=== PATIENT | female | born 1940 ===

== ENCOUNTER 2018-07-12 10:07 | Emergency (ER) | payer OTHER ==
[2018-07-12 10:08] VITALS: BMI 47.2
[2018-07-12 11:20] LABS: SQUAMOUS EPITHIAL 4 /hpf (0-5); URINE BACTERIA OCC (<OCC); URINE BILIRUBIN NEGATIVE (NEGATIVE); URINE BLOOD NEGATIVE (NEGATIVE); URINE CLARITY Hazy (Clear); URINE COLOR Yellow (YELLOW); URINE GLUCOSE (UA) NORMAL (Normal); URINE LEUKOCYTE ESTERASE TRACE Leu/uL (Negative); URINE PROTEIN NEGATIVE (NEGATIVE); URINE UROBILINOGEN NORMAL mg/dL (0.2-1.0)
[2018-07-12] MEDS ORDERED: Sodium Chloride 0.9% 1,000 ML IV ONE (11:54)
[2018-07-12] MEDS ORDERED: Sodium Chloride 0.9% 1,000 ML ONE (12:28)
[2018-07-12 13:14] LABS: BASO # 0.1 K/uL (0.0-0.2); BASO % 1.1 % (0.0-2.0); EOS # 0.1 K/uL (0.0-0.7); EOS % 1.3 % (0.0-4.0); HEMOGLOBIN 14.3 g/dL (11.0-16.0); LYMPH # 2.2 K/uL (1.0-4.3); LYMPH % 41.5 % (20.0-40.0); MEAN CORPUSCULAR HEMOGLOBIN 31.3 pg (27.0-31.0); MEAN CORPUSCULAR HGB CONC 34.4 g/dL (33.0-37.0); MEAN PLATELET VOLUME 12.1 fL (7.2-11.7); MONO # 0.4 K/uL (0.0-0.8); MONO % 8.1 % (0.0-10.0); NEUT # 2.5 K/uL (1.8-7.0); NRBC % 0.1 % (0.0-2.0); RBC 4.56 Mil/uL (3.80-5.20); RED CELL DISTRIBUTION WIDTH 13.9 % (11.5-14.5); WHITE BLOOD COUNT 5.3 K/uL (4.8-10.8)
[2018-07-12 13:22] LABS: INR 1.1; PARTIAL THROMBOPLASTIN TIME 30.8 SECONDS (21-34); PROTHROMBIN TIME 12.1 SECONDS (9.7-12.2)
[2018-07-12 13:25] LABS: BLOOD UREA NITROGEN 15 mg/dL (7-17); CALCIUM 9.8 mg/dl (8.6-10.4); GFR NON-AFRICAN AMERICAN > 60; LIPASE 116 U/L (23-300)
[2018-07-12 13:30] LABS: ALB/GLOB RATIO 1.2 (1.0-2.1); ALT/SGPT 14 U/L (9-52); AST/SGOT 44 U/L (14-36)
[2018-07-12] MEDS ORDERED: Iodixanol 320 MG/ML 100 ML BOTTLE IV ONE (13:37)
[2018-07-12 15:00] VITALS: RESP 20
--- NOTE | 2018-07-12 15:11 | C.PDOC ---
History Of Present Illness 77 y/o female,w/PMhx of HTN and arthritis, presents to the ER complaining of abdominal pain which has present over the past 1 month becoming gradually worse over the past 1 week. As per daughter, patient describes the pain as "pinching" sensation. Daughter states patient has associated nausea. She also notes that patient had her last bm today. Patient has a history of ventral hernia for one year. Denies having fever,chills,vomiting, diarrhea, dysuria, and hematuria. <Elizabeth Marlow - Last Filed: 07/13/18 08:42> History Per: Patient History/Exam Limitations: no limitations Onset/Duration Of Symptoms: Days Current Symptoms Are (Timing): Still Present Severity: Moderate <Elizabeth Marlow - Last Filed: 07/13/18 08:42> <Yandy Luna - Last Filed: 07/13/18 14:48> Chief Complaint (Nursing): Abdominal Pain Past Medical History Reviewed: Historical Data, Nursing Documentation, Vital Signs Vital Signs: Last Vital Signs Temp 97.8 F 07/12/18 14:59 Pulse 68 07/12/18 14:59 Resp 20 07/12/18 14:59 BP 114/65 07/12/18 14:59 Pulse Ox 95 07/12/18 14:59 Primary Care Provider: Johnathan Oquendo - Medical History PMH: Arthritis, HTN, Peripheral Edema Other Surgeries: Hx of surgeries Family History: States: No Known Family Hx - Social History Hx Alcohol Use: No Hx Substance Use: No - Immunization History Hx Influenza Vaccination: No Hx Pneumococcal Vaccination: No <Elizabeth Marlow - Last Filed: 07/13/18 08:42> Vital Signs: Last Vital Signs Temp 98.1 F 07/12/18 18:00 Pulse 72 07/12/18 18:00 Resp 20 07/12/18 18:00 BP 147/79 07/12/18 18:00 Pulse Ox 95 07/13/18 08:43 <Yandy Luna - Last Filed: 07/13/18 14:48> Review Of Systems Except As Marked, All Systems Reviewed And Found Negative. Constitutional: Negative for: Fever, Chills Gastrointestinal: Positive for: Nausea, Abdominal Pain. Negative for: Vomiting, Diarrhea Genitourinary: Negative for: Dysuria, Hematuria <Elizabeth Marlow - Last Filed: 07/13/18 08:42> Physical Exam - Physical Exam Appears: Non-toxic, No Acute Distress, Other (obese,awake,alert, orientedx3) Skin: Normal Color, Warm, Dry Head: Atraumatic, Normacephalic Eye(s): bilateral: Normal Inspection Nose: Normal Oral Mucosa: Moist Neck: Supple Chest: Symmetrical Cardiovascular: Rhythm Regular Respiratory: Normal Breath Sounds, No Rales, No Rhonchi, No Wheezing Gastrointestinal/Abdominal: Bowel Sounds (decreased bowel sounds), Soft, Tenderness (diffuse tenderness, greater in lower abdomen) Back: No CVA Tenderness Extremity: Normal ROM, Other (pitting edema to bilateral lower extremities) Neurological/Psych: Oriented x3, Normal Speech <Elizabeth Marlow - Last Filed: 07/13/18 08:42> ED Course And Treatment - Laboratory Results Result Diagrams: 07/12/18 13:00 07/12/18 13:00 Lab Results: PT 12.1 SECONDS (9.7-12.2) 07/12/18 13:00 INR 1.1 07/12/18 13:00 APTT 30.8 SECONDS (21-34) 07/12/18 13:00 Total Bilirubin 0.9 mg/dL (0.2-1.3) 07/12/18 13:00 AST 44 U/L (14-36) H 07/12/18 13:00 ALT 14 U/L (9-52) 07/12/18 13:00 Alkaline Phosphatase 48 U/L (38-126) 07/12/18 13:00 Total Protein 7.5 g/dL (6.3-8.3) 07/12/18 13:00 Albumin 4.0 g/dL (3.5-5.0) 07/12/18 13:00 Globulin 3.5 gm/dL (2.2-3.9) 07/12/18 13:00 Albumin/Globulin Ratio 1.2 (1.0-2.1) 07/12/18 13:00 Lipase 116 U/L (23-300) 07/12/18 13:00 Urine Color Yellow (YELLOW) 07/12/18 11:04 Urine Clarity Hazy (Clear) 07/12/18 11:04 Urine pH 6.0 (5.0-8.0) 07/12/18 11:04 Ur Specific Hayes 1.015 (1.003-1.030) 07/12/18 11:04 Urine Protein Negative mg/dL (NEGATIVE) 07/12/18 11:04 Urine Glucose (UA) Normal mg/dL (Normal) 07/12/18 11:04 Urine Ketones Negative mg/dL (NEGATIVE) 07/12/18 11:04 Urine Blood Negative (NEGATIVE) 07/12/18 11:04 Urine Nitrate Positive (NEGATIVE) H 07/12/18 11:04 Urine Bilirubin Negative (NEGATIVE) 07/12/18 11:04 Urine Urobilinogen Normal mg/dL (0.2-1.0) 07/12/18 11:04 Ur Leukocyte Esterase Trace Mak/uL (Negative) 07/12/18 11:04 Urine WBC (Auto) 11 /hpf (0-5) H 07/12/18 11:04 Urine RBC (Auto) < 1 /hpf (0-3) 07/12/18 11:04 Ur Squamous Epith Cells 4 /hpf (0-5) 07/12/18 11:04 Urine Bacteria Occ (<OCC) H 07/12/18 11:04 O2 Sat by Pulse Oximetry: 95 (RA) Pulse Ox Interpretation: Normal - CT Scan/US CT Other Rad Studies (CT/US): Read By Radiologist, Radiology Report Reviewed CT/US Interpretation: Date of service: 07/12/2018. PROCEDURE: CT Abdomen and Pelvis with contrast. HISTORY: abd pain. COMPARISON: CT abdomen pelvis without IV contrast performed 08/09/17. TECHNIQUE: Contrast dose: 100 mL Visipaque 320 IV. Radiation dose: Total exam DLP = 1136.63 mGy-cm. This CT exam was performed using one or more of the following dose reduction techniques: Automated exposure control, adjustment of the mA and/or kV according to patient size, and/or use of iterative reconstruction technique. FINDINGS: LOWER THORAX: Mild bibasilar atelectasis. No visible pleural effusion or pneu mothorax. Partially imaged cardiomegaly. Coronary artery calcifications. LIVER: Unremarkable. GALLBLADDER AND BILE DUCTS: Unremarkable. PANCREAS: Unremarkable. SPLEEN: 15 mm probable splenule. Otherwise unremarkable. ADRENALS: Unremarkable. KIDNEYS AND URETERS: The kidneys enhance symmet rically. No hydronephrosis or obstructing calculus identified. VASCULATURE: No aortic aneurysm. Atherosclerotic calcifications present. BOWEL: Stomach is nondistended. Lack of oral contrast limits evaluation for bowel pathology. Bowel loops appear within normal limits of caliber without evidence of obstruction. APPENDIX: The appendix is not identified. No secondary signs of acute appendicitis. PERITONEUM: No significant free fluid. No definite free air. LYMPH NODES: Prominent bilateral sub cm inguinal adenopathy. BLADDER: Lobulated under distended urinary bladder. REPRODUCTIVE: The uterus is absent consistent with hysterectomy. BONES: Degenerative changes. Grade 1 anteroli sthesis of L5 on S1. Vacuum disc phenomenon at T12-L1 and L5-S1. OTHER FINDINGS: Bowel and fat containing ventral hernia measures approximately 7.3 cm in transverse dimension. IMPRESSION: Bowel and fat containing ventral hernia measures approximately 7.3 cm in transverse dimension. Lobulated under distended urinary bladder likely due to bladder diverticula. Additional incidental findings as above. <Elizabeth Marlow - Last Filed: 07/13/18 08:42> - Laboratory Results Result Diagrams: 07/12/18 13:00 07/12/18 13:00 Lab Results: PT 12.1 SECONDS (9.7-12.2) 07/12/18 13:00 INR 1.1 07/12/18 13:00 APTT 30.8 SECONDS (21-34) 07/12/18 13:00 Total Bilirubin 0.9 mg/dL (0.2-1.3) 07/12/18 13:00 AST 44 U/L (14-36) H 07/12/18 13:00 ALT 14 U/L (9-52) 07/12/18 13:00 Alkaline Phosphatase 48 U/L (38-126) 07/12/18 13:00 Total Protein 7.5 g/dL (6.3-8.3) 07/12/18 13:00 Albumin 4.0 g/dL (3.5-5.0) 07/12/18 13:00 Globulin 3.5 gm/dL (2.2-3.9) 07/12/18 13:00 Albumin/Globulin Ratio 1.2 (1.0-2.1) 07/12/18 13:00 Lipase 116 U/L (23-300) 07/12/18 13:00 Urine Color Yellow (YELLOW) 07/12/18 11:04 Urine Clarity Hazy (Clear) 07/12/18 11:04 Urine pH 6.0 (5.0-8.0) 07/12/18 11:04 Ur Specific Hayes 1.015 (1.003-1.030) 07/12/18 11:04 Urine Protein Negative mg/dL (NEGATIVE) 07/12/18 11:04 Urine Glucose (UA) Normal mg/dL (Normal) 07/12/18 11:04 Urine Ketones Negative mg/dL (NEGATIVE) 07/12/18 11:04 Urine Blood Negative (NEGATIVE) 07/12/18 11:04 Urine Nitrate Positive (NEGATIVE) H 07/12/18 11:04 Urine Bilirubin Negative (NEGATIVE) 07/12/18 11:04 Urine Urobilinogen Normal mg/dL (0.2-1.0) 07/12/18 11:04 Ur Leukocyte Esterase Trace Mak/uL (Negative) 07/12/18 11:04 Urine WBC (Auto) 11 /hpf (0-5) H 07/12/18 11:04 Urine RBC (Auto) < 1 /hpf (0-3) 07/12/18 11:04 Ur Squamous Epith Cells 4 /hpf (0-5) 07/12/18 11:04 Urine Bacteria Occ (<OCC) H 07/12/18 11:04 <Yandy Luna - Last Filed: 07/13/18 14:48> Medical Decision Making Medical Decision Making: Plan: --Labs --EKG --CT-Abd & Pelv. --Urinalysis --Urine Culture --Blood Culture --IV Fluids --Morphine IV <Elizabeth Marlow - Last Filed: 07/13/18 08:42> Disposition Counseled Patient/Family Regarding: Studies Performed, Diagnosis, Need For Followup - Disposition Disposition Time: 17:19 <Elizabeth Marlow - Last Filed: 07/13/18 08:42> <Yandy Luna - Last Filed: 07/13/18 14:48> - Disposition Referrals: Johnathan Oquendo MD [Staff Provider] - Sohail Adam MD [Staff Provider] - Disposition: HOME/ ROUTINE Condition: STABLE Prescriptions: Cephalexin [cephalexin] 250 mg PO QID #28 cap Instructions: Urinary Tract Infection, Adult (DC), Acute Abdomen (Belly Pain), Adult (DC) Forms: Gen Discharge Inst Turkish, ArticleAlley (Turkish) Print Language: FILIPINO - Clinical Impression Clinical Impression: Abdominal pain, UTI (urinary tract infection) - Scribe Statement The provider has reviewed the documentation as recorded by the Scribe Kevin Sánchez Provider Attestation: All medical record entries made by the Scribe were at my direction and personally dictated by me. I have reviewed the chart and agree that the record accurately reflects my personal performance of the history, physical exam, medical decision making, and the department course for this patient. I have also personally directed, reviewed, and agree with the discharge instructions and disposition. <Elizabeth Marlow - Last Filed: 07/13/18 08:42> Addendum Addendum: 07/13/18 14:46 Patient and daughter contacted about blood culture results Patient advised to return to ED [facility] for further evaluation Patient reports she is feeling better and will return <Yandy Luna - Last Filed: 07/13/18 14:48>
--- NOTE | 2018-07-12 15:47 | CT ---
Date of service: 07/12/2018 PROCEDURE: CT Abdomen and Pelvis with contrast HISTORY: abd pain COMPARISON: CT abdomen pelvis without IV contrast performed 08/09/17 TECHNIQUE: Contrast dose: 100 mL Visipaque 320 IV Radiation dose: Total exam DLP = 1136.63 mGy-cm. This CT exam was performed using one or more of the following dose reduction techniques: Automated exposure control, adjustment of the mA and/or kV according to patient size, and/or use of iterative reconstruction technique. FINDINGS: LOWER THORAX: Mild bibasilar atelectasis. No visible pleural effusion or pneumothorax. Partially imaged cardiomegaly. Coronary artery calcifications. LIVER: Unremarkable. GALLBLADDER AND BILE DUCTS: Unremarkable. PANCREAS: Unremarkable. SPLEEN: 15 mm probable splenule. Otherwise unremarkable. ADRENALS: Unremarkable. KIDNEYS AND URETERS: The kidneys enhance symmetrically. No hydronephrosis or obstructing calculus identified. VASCULATURE: No aortic aneurysm. Atherosclerotic calcifications present. BOWEL: Stomach is nondistended. Lack of oral contrast limits evaluation for bowel pathology. Bowel loops appear within normal limits of caliber without evidence of obstruction. APPENDIX: The appendix is not identified. No secondary signs of acute appendicitis. PERITONEUM: No significant free fluid. No definite free air. LYMPH NODES: Prominent bilateral sub cm inguinal adenopathy. BLADDER: Lobulated under distended urinary bladder. REPRODUCTIVE: The uterus is absent consistent with hysterectomy. BONES: Degenerative changes. Grade 1 anterolisthesis of L5 on S1. Vacuum disc phenomenon at T12-L1 and L5-S1. OTHER FINDINGS: Bowel and fat containing ventral hernia measures approximately 7.3 cm in transverse dimension. IMPRESSION: Bowel and fat containing ventral hernia measures approximately 7.3 cm in transverse dimension. Lobulated under distended urinary bladder likely due to bladder diverticula. Additional incidental findings as above.
[2018-07-12 18:01] VITALS: BP 147/79; PULSE 72; TEMP 98.1
[2018-07-13 08:43] VITALS: O2SAT 95
--- NOTE | 2018-07-14 00:05 | CARD ---
APPROVED REPORT Date of service: 07/12/2018 EKG Measurement Heart [id number] <Conclusion> Poor data quality, interpretation may be adversely affected Normal sinus rhythm Minimal voltage criteria for LVH, may be normal variant ST & T wave abnormality, consider anterolateral ischemia Prolonged QT Abnormal ECG
== END 2018-07-12 18:01 | disposition home or self-care (01) ==
LOC: C.ER 10:07
DX: N39.0 Urinary tract infection, site not specified (principal); I10 Essential (primary) hypertension
CPT/HCPCS: 74177; 80053; 81001; 83690; 85025; 85610; 85730; 87040; 87086; 87149; 87181; 87205; 93005; 96374; 99285; J0696; J2270; J7030; Q9967